=== PATIENT | female | born 2005 | race Hispanic/Latino ===

== ENCOUNTER 2024-10-02 18:14 | Emergency (ER) | payer BC ==
[~2024-10-02] VITALS: Ht 162.6 cm; Wt 102.1 kg
[2024-10-02 20:20] VITALS: PULSE 96; RESP 16; TEMP 98.9
[2024-10-03 01:34] VITALS: BP 150/92; PULSE 113; RESP 20; TEMP 98.6; O2SAT 100
== END 2024-10-02 23:40 | disposition home or self-care (01) ==
LOC: ER 22:05
DX: R51.9 Headache, unspecified (principal); S06.0X0A Concussion without loss of consciousness, initial encounter; R42 Dizziness and giddiness; R11.0 Nausea; R53.83 Other fatigue; W22.09XA Striking against other stationary object, initial encounter; Y92.89 Other specified places as the place of occurrence of the external cause; E78.5 Hyperlipidemia, unspecified
CPT/HCPCS: 70450; 81025; 99283